=== PATIENT | male | born 1960 | race African-American/Black ===

== ENCOUNTER 2023-11-25 13:14 | Outpatient (CLI) | payer OTHER ==
[~2023-11-25 13:14] MED LIST: Iopamidol 370 76% 100 ML VIAL ONE
== END 2023-11-25 13:15 | disposition home or self-care (01) ==
LOC: BICCT 13:14
PROVIDERS: ATTEND Urology
DX: R31.0 Gross hematuria (principal); N40.0 Benign prostatic hyperplasia without lower urinary tract symptoms
CPT/HCPCS: 74178; 82565; Q9967

== ENCOUNTER 2024-05-17 11:45 | Outpatient (CLI) | payer OTHER | END 2024-05-17 11:46 | disposition home or self-care (01) | LOC: PET 11:45 | PROVIDERS: ATTEND Urology | DX: C61 Malignant neoplasm of prostate (principal); R94.8 Abnormal results of function studies of other organs and systems | CPT/HCPCS: 78815; A9552; A9595 ==